=== PATIENT | female | born 1970 ===

== ENCOUNTER 2021-12-21 11:45 | Inpatient (IN) | payer OTHER ==
[~2021-12-21] VITALS: Ht 157.5 cm; Wt 54.4 kg
[2021-12-21] MEDS ORDERED: FIORICET PO (13:05)
[2021-12-23] MEDS ORDERED: BUTALB-ACETAMI1 EAC2 (08:14)
[2021-12-23] MEDS ORDERED: CABERGOLINE0.5 MG (08:14)
== END 2021-12-24 22:37 | disposition home or self-care (01) | DRG 334 ==
LOC: EDSTATUS 11:45 → ADM 11:45 → SURH 12-23 07:04 → O/R 12-23 07:04 → SURH 12-23 10:53 → SURG 12-24 15:32
PROVIDERS: ADMIT Surgery; ATTEND Surgery
PROC: 3E0T3BZ Introduction of Anesthetic Agent into Peripheral Nerves and Plexi, Percutaneous Approach (ICD-10-PCS; 2021-12-23)
PROC: 0DBP4ZZ Excision of Rectum, Percutaneous Endoscopic Approach (ICD-10-PCS; principal; 2021-12-23 14:45)
DX: D12.8 Benign neoplasm of rectum (principal); Z20.822 Contact with and (suspected) exposure to COVID-19